=== PATIENT | female | born 1935 | race Caucasian/White ===

== ENCOUNTER 2017-06-14 10:27 | Outpatient (CLI) | payer MEDICARE ==
--- NOTE | 2017-06-14 12:21 | ULT ---
LEFT DIAGNOSTIC MAMMOGRAM LEFT BREAST SONOGRAM: Date: 06/14/17 HISTORY: Left breast masses. Six month follow-up. COMPARISON: 12/09/16. FINDINGS: Scattered fibroglandular densities are again demonstrated. At the inferior medial aspect of the left breast, two partially obscured irregular shaped isodense masses are again demonstrated. They are no w 1.0 and 0.9 cm greatest diameter where they were previously 0.7 cm greatest diameter each. Margins are now somewhat irregular. No other new dominant mass or suspicious calcifications are apparent. Sonographic evaluation of the medial aspect of the left breast again shows two lobular hypoechoic ma sses. The largest is now 0.7 cm width x 0.6 cm depth and shows some posterior acoustic shadowing. Th e smaller is now 0.6 cm diameter and shows subtle posterior shadowing. IMPRESSION: 1. Slight interval enlargement of the two hypoechoic masses at the medial aspect of the left breast , as detailed above. The enlargement and appearance are worrisome for neoplasm, not completely cysti c on today's study. 2. BIRADS 4: Suspicious Abnormality - Biopsy Should Be Considered. Tissue sampling of each mass is suggested. Sonographic needle biopsy will be scheduled with the assistance of Sanjuana Mcintosh from [facility]. Findings called to Gwen at the office of Dr. West at 1150 hours. CODE CR. POS: [facility]
== END 2017-06-14 10:28 | disposition home or self-care (01) ==
LOC: MAMMO 10:27
PROVIDERS: ATTEND Obstetrics & Gynecology
DX: N63 Unspecified lump in breast (principal)
CPT/HCPCS: 76642; G0206

== ENCOUNTER → 2017-06-24 | Day surgery (SDC) | payer MEDICARE ==
--- NOTE | 2017-06-24 16:02 | ULT ---
ULTRASOUND GUIDED LEFT BREAST BIOPSY: CLINICAL HISTORY: Left breast mass. PROCEDURE: Informed consent was obtained. The patient's left breast mass labeled 7-8 cm from nipple left breas t 9 o'clock location labeled as lesion 1 was localized sonographically. The left breast was prepped and draped in standard sterile fashion. Topical anesthesia with buffere d 1% Lidocaine was performed. A small skin incision was made. Through the incision site, a 14-gaug e needle was advanced to the leading edge of the mass and 4 subsequent core specimens were acquired with imaging stored for documentation. These were placed into a sealed formalin container which was then sent to pathology for further analysis. A biopsy marking clip was advanced into and deployed within the biopsied mass of interest. No procedural complications. The patient was transferred to mammography to undergo clip placement mammographic views subsequent t o the procedure. IMPRESSION: Left breast lesion 1, 9 o'clock location, 7-8 cm from nipple: Technically successful ultrasound-guided biopsy of lesion 1 of left breast. Pathology results are p ending. POS: [facility]
--- NOTE | 2017-06-24 16:07 | ULT ---
ULTRASOUND GUIDED LEFT BREAST BIOPSY: Left breast lesion 2, 4-5 cm from nipple at 9 o'clock location of left breast. PROCEDURE: Ultrasound-guided left breast biopsy, 2nd of 2 consecutive biopsies within the left breast. CLINICAL HISTORY: Left breast mass. PROCEDURE IN DETAIL: Informed consent was obtained. The patient's left breast was prepped and draped in standard sterile fashion and the 2nd of 2 biopsied lesions, which was located within the 9 o'clock location of left breast 4-5 cm from the nipple was localized sonographically. Topical anesthesia was achieved with 1% buffered Lidocaine. A small skin incision was made through which a 14 gauge biopsy needle was advanced to the leading edge of the lesion of interest. Four sub sequent core specimens under real-time sonography were performed with specimens placed into sealed f ormalin container which was then sent to pathology for further analysis. Imaging was stored for doc umentation. The needle was removed. A biopsy marking clip was advanced into and deployed within th e biopsied left breast mass. Imaging was stored for confirmation. The patient tolerated the procedure well without evidence of complication. The patient was transfer red to mammography to undergo clip placement views of left breast. IMPRESSION: Left breast lesion 2. Left breast location 9 o'clock, 4-5 cm from nipple. Technically successful ultrasound-guided left breast biopsy and marking clip placement. Pathology results are pending. POS: [facility]
--- NOTE | 2017-06-24 16:41 | MMO ---
DIAGNOSTIC LEFT MAMMOGRAM: CLINICAL HISTORY: Postprocedural left mammogram status post ultrasound-guided biopsy of 2 separate left breast masses. FINDINGS: There are 2 biopsy marking clips which do localize to the previously documented masses of the left b reast, corresponding to the ultrasound-guided preceding left breast biopsies. In addition, there is a 3rd, smaller lesion anteriorly within the left breast located slightly medial and anterior to the additional 2 lesions. This lesion was not biopsied. IMPRESSION: 1. Deployment of 2 separate biopsy marking clips status post ultrasound-guided breast biopsy of 2 s eparate left breast lesions. 2. There is a 3rd, smaller left breast mass which was not biopsied. Given multifocality of masses in the left breast, the patient would benefit from contrast-enhanced breast MRI. POS: [facility]
== END ==
LOC: ULT 12:06
PROVIDERS: ATTEND Obstetrics & Gynecology
DX: C50.812 Malignant neoplasm of overlapping sites of left female breast (principal)
CPT/HCPCS: 19083; 19084; 88305; 88342; 88361; G0206

== ENCOUNTER 2017-07-25 08:02 | Outpatient (CLI) | payer MEDICARE ==
[2017-07-25 09:40] LABS: #Basophils 0.1 thou/uL (0.0-0.2); #Eosinphils 0.2 thou/uL (0.0-0.7); #Lymphocytes 1.8 thou/uL (1.20-3.40); #Monocytes 0.9 thou/uL (0.11-0.59); #Neutrophils 8.2 thou/uL (1.40-6.50); %Basophils 0.5 % (0.0-1.0); %Eosinophils 1.4 % (0.0-10.0); %Lymphocytes 15.8 % (21.0-51.0); %Monocytes 8.2 % (0.0-10.0); Hematocrit 49.4 % (36.0-47.0); Mean Platelet Volume 7.3 fL (7.4-10.4); White Blood Cell (WBC) Count 11.1 thou/uL (4.8-10.8)
[2017-07-25 10:06] LABS: Anion Gap 14 mmol/L (10-20); BUN (Urea Nitrogen) 24 mg/dL (9.8-20.1); Calc. Creatinine Clearance 0 mL/min (70-130); Calcium 9.8 mg/dL (7.8-10.44); Carbon Dioxide 24 mmol/L (23-31); Chloride 108 mmol/L (98-107); Estimated GFR-MDRD 51
--- NOTE | 2017-07-25 15:09 | EKG ---
Test Reason : Blood Pressure : / mmHG Vent. Rate : 074 BPM Atrial Rate : 074 BPM P-R Int : 138 ms QRS Dur : 076 ms QT Int : 372 ms P-R-T Axes : 037 008 -03 degrees QTc Int : 412 ms Normal sinus rhythm Abnormal ECG Confirmed by SHAHRZAD SANDOVAL ([id number]) on 07/25/2017 3:09:01 PM Referred By: CHIRSTINA Confirmed By:SHAHRZAD SANDOVAL
== END 2017-07-25 08:03 | disposition home or self-care (01) ==
LOC: LABBT 08:02
PROVIDERS: ATTEND Surgery
DX: Z01.818 Encounter for other preprocedural examination (principal); C50.919 Malignant neoplasm of unspecified site of unspecified female breast
CPT/HCPCS: 80048; 85025; 93005; 93010

== ENCOUNTER 2017-07-28 07:10 | Day surgery (SDC) | payer MEDICARE ==
[2017-07-25 08:50] VITALS: BMI 24.7
--- NOTE | 2017-07-28 09:25 | NM ---
LYMPHOSCINTIGRAPHY 07/28/17 PROVIDED CLINICAL HISTORY: Left sided breast cancer. FINDINGS: Informed consent was obtained from the patient. 0.4 millicuries of technetium 99m labeled filtered s ulfur colloid were injected in the periareolar distribution in four equal aliquots about the left ar eola. Subsequent scintigraphy demonstrates radiotracer accumulation within the regions of radiotrace r administration as well as within the region of the left axilla. IMPRESSION: As above. POS: [facility]
[2017-07-28] MEDS ORDERED: Isosulfan Blue 50 MG/5 ML VIAL ONE (10:33)
[2017-07-28] MEDS ORDERED: Fentanyl 100 MCG/2 ML VIAL ONE ×4 (10:56→15:37)
[2017-07-28] MEDS ORDERED: Ondansetron HCl/PF 4 MG/2 ML Vial ONE (11:04)
[2017-07-28] MEDS ORDERED: ePHEDrine/0.9% NaCl/PF SYRINGE 50 mg/10 ml ONE (11:04)
[2017-07-28] MEDS ORDERED: Succinylcholine Chloride 20 MG/ML 10 ml SYRINGE FS ONE (11:04)
[2017-07-28] MEDS ORDERED: Propofol 200 MG/20 ML VIAL ONE (11:04)
[2017-07-28] MEDS ORDERED: Dexamethasone 20 MG/5 ML VIAL ONE (11:04)
[2017-07-28] MEDS ORDERED: Bupivacaine PF 0.5% 30 ML VIAL ONE (11:26)
[2017-07-28] MEDS ORDERED: Promethazine HCl 25 MG/ML VIAL SLOW IVP PRN (13:32)
[2017-07-28] MEDS ORDERED: Promethazine HCl 25 MG/ML VIAL IM PRN (13:32)
[2017-07-28] MEDS ORDERED: Ondansetron HCl/PF 4 MG/2 ML Vial IVP PRN (13:32)
[2017-07-28] MEDS ORDERED: HYDROcodone/Acetaminophen 7.5/325 mg Tablet PO PRN (13:41)
[2017-07-28] MEDS ORDERED: Ondansetron HCl/PF 4 MG/2 ML Vial SLOW IVP PRN (13:45)
[2017-07-28] MEDS ORDERED: Morphine Sulfate 2 MG/ML SYRINGE SLOW IVP PRN ×2 (13:45→13:46)
[2017-07-28] MEDS ORDERED: traMADol HCl 50 MG TAB PO PRN ×2 (13:47→13:48)
[2017-07-28] MEDS ORDERED: HYDROmorphone 2 MG/ML VIAL SLOW IVP PRN (15:11)
[2017-07-28] MEDS ORDERED: Non-Formulary Medication 1 EACH PO PRN (15:11)
[2017-07-28] MEDS: HYDROcodone/Acetaminophen 7.5/325 mg Tablet PO PRN ×2 (16:53→21:59)
[2017-07-28] MEDS: Sodium Chloride 0.9% 1,000 ML IV SCH (16:55)
--- NOTE | 2017-07-28 17:09 | PDOC.OP ---
Operative Note - Operative Note Operative Note: PROCEDURE: breast needle localized lumpectomy and sentinel lymph node biopsy DATE OF PROCEDURE: SURGEON: Jones Michelle M.D. PREOPERATIVE DIAGNOSES: Multifocal left breast cancer POSTOPERATIVE DIAGNOSIS: Multifocal left breast cancer HISTORY: Patient is diagnosed with breast cancer in 2 separate areas of the left breast. She has decided to undergo mastectomy due to the multifocal nature of her disease. She has declined reconstruction.. [place] lymph node biopsy was recommended for staging. PROCEDURE IN DETAIL: The patient underwent lymphoscintigraphy. She was then taken to the operating room and placed in supine position and anesthesia was administered. Lymphazurin was injected behind the areola and the breast was massaged for several minutes. She was then prepped and draped in the standard sterile fashion and local anesthesia infused to the skin and subcutaneous tissues of the axilla. An incision was made over the lower edge of the hair- bearing skin of the axilla and dissection carried down to the area of highest activity. Some blue lymphatics were seen feeding a small lymph node in this area which was morphologically normal. The lymphatics were clipped and the lymph node resected. A target count of 28 was obtained and the specimen was sent as sentinel lymph node #1. An additional area of increased activity was identified and another lymph node identified. This was blue and had a target count of 56 and was sent as sentinel lymph node #2. An additional area of increased activity was identified and another lymph node identified. This was not blue and had a target count of 24 and was sent as sentinel lymph node #23. The axillary wound was irrigated and examined for hemostasis which was excellent. No additional areas of increased activity were identified. Additional local anesthesia was infused circumferentially for postoperative pain management and the subcutaneous tissues were closed with 3-0 Monocryl suture and the skin closed with 4-0 subcuticular Monocryl suture. Attention was then turned to the mastectomy. An elliptical incision was made including the nipple areolar complex and flaps raised inferiorly to the level of the rectus sheath, medially to the sternal edge, and superiorly to the clavicle. The breast tissue was then dissected free of the underlying pectoralis muscle and marked for orientation with a long lateral and short superior suture. Hemostasis was obtained using Bovie electrocautery. A SAL drain was placed under the chest wall flaps and the subcutaneous tissues reapproximated with interrupted 2-0 Vicryl sutures. A skin incision was closed with skin [place] and Xeroform and gauze dressings were placed. The SAL was secured with a drain stitch and a gauze and Tegaderm dressing placed at that location as well. A compression dressing was placed using a circumferential Natalio wrap and the patient was extubated and taken to the recovery room in good condition. Estimated blood loss was minimal. There were no complications. Specimen is left breast and sentinel lymph nodes 3.
[2017-07-29] MEDS: Sodium Chloride 0.9% 1,000 ML IV SCH (01:00)
[2017-07-29 08:26] VITALS: BP 134/76
[2017-07-29 12:24] VITALS: TEMP 98.2
[2017-07-29] MEDS: HYDROcodone/Acetaminophen 7.5/325 mg Tablet PO PRN (12:37)
== END 2017-07-29 13:23 | disposition home or self-care (01) ==
LOC: SDC 07:10 → UNDOADMOB 14:53 → SURG B 14:53 → SDC 07-29 13:23 → UNDODISOB 07-29 13:23
PROVIDERS: ATTEND Surgery
PROC: 0HBU0ZX Excision of Left Breast, Open Approach, Diagnostic (ICD-10-PCS; principal; 2017-07-28)
PROC: 07B60ZX Excision of Left Axillary Lymphatic, Open Approach, Diagnostic (ICD-10-PCS; 2017-07-28)
DX: D05.12 Intraductal carcinoma in situ of left breast (principal); I10 Essential (primary) hypertension; E78.00 Pure hypercholesterolemia, unspecified; Z17.0 Estrogen receptor positive status [ER+]; Z79.899 Other long term (current) drug therapy; Z98.890 Other specified postprocedural states; Z87.891 Personal history of nicotine dependence; Z80.0 Family history of malignant neoplasm of digestive organs
CPT/HCPCS: 19301; 38500; 38900; 78195; 96374; 97110; 97139; A9541; G8987; G8988; G8989; Q9968; 88307; 88309; 88333; 88342; J1100; J2405; J2704; J3010; S0020

== ENCOUNTER 2017-09-12 15:02 | Outpatient (CLI) | payer MEDICARE | END 2017-09-12 15:03 | disposition home or self-care (01) | LOC: BICMAMMO 15:02 | PROVIDERS: ATTEND Internal Medicine Hematology & Oncology | DX: Z13.820 Encounter for screening for osteoporosis (principal); M85.88 Other specified disorders of bone density and structure, other site; Z78.0 Asymptomatic menopausal state | CPT/HCPCS: 77080 ==

== ENCOUNTER 2018-02-06 14:47 | Outpatient (CLI) | payer MEDICARE | END 2018-02-06 14:48 | disposition home or self-care (01) | LOC: BICMAMMO 14:47 | PROVIDERS: ATTEND Internal Medicine Hematology & Oncology | DX: C50.212 Malignant neoplasm of upper-inner quadrant of left female breast (principal); N63.13 Unspecified lump in the right breast, lower outer quadrant | CPT/HCPCS: 76642; 77065; G0279 ==

== ENCOUNTER → 2018-02-15 | Day surgery (SDC) | payer MEDICARE | LOC: BICULT 11:45 | PROVIDERS: ATTEND Internal Medicine Hematology & Oncology | PROC: 0HBT3ZX Excision of Right Breast, Percutaneous Approach, Diagnostic (ICD-10-PCS; principal; 2018-02-15) | DX: N60.31 Fibrosclerosis of right breast (principal); Z79.899 Other long term (current) drug therapy | CPT/HCPCS: 19083; 88305; 88341; 88342 ==

== ENCOUNTER 2019-02-14 10:01 | Outpatient (CLI) | payer MEDICARE ==
--- NOTE | 2019-02-14 10:46 | MMO ---
Right Breast MAMMO Unilat Diag DDI RT+RUDDY. CLINICAL HISTORY: Patient is 83 years old and is seen for diagnostic exam. The patient has no family history of breast cancer. The patient has a history of right Ultrasound Guided Core Biopsy in 2018 - benign, left Mastectomy in July, - malignant and left Ultrasound Guided Core Biopsy in 2017 - malignant. VIEWS: The views performed were: right craniocaudal with tomosynthesis; right mediolateral oblique with tomosynthesis; and right mediolateral. FILMS COMPARED: The present examination has been compared to prior imaging studies performed at [facility] on 02/06/2018, at [facility] on 12/03/2015, 12/09/2016 and 06/14/2017, and at [facility] on 06/24/2017. MAMMOGRAM FINDINGS: There are scattered fibroglandular densities. Finding 1: There is a stable nodule with associated biopsy clip seen in the right breast. Finding 2: There are vascular calcifications seen in the right breast. There are no suspicious masses, suspicious calcifications, or new areas of architectural distortion. IMPRESSION: THERE IS NO MAMMOGRAPHIC EVIDENCE OF MALIGNANCY. A ROUTINE FOLLOW-UP MAMMOGRAM IN 1 YEAR IS RECOMMENDED. THE RESULTS OF THIS EXAM WERE SENT TO THE PATIENT. ACR BI-RADS Category 2 - Benign finding MAMMOGRAPHY NOTE: 1. A negative mammogram report should not delay a biopsy if a dominant of clinically suspicious mass is present. 2. Approximately 10% to 15% of breast cancers are not detected by mammography. 3. Adenosis and dense breasts may obscure an underlying neoplasm.
--- NOTE | 2019-02-14 11:26 | BD ---
DEXA BONE DENSITY STUDY: HISTORY: Postmenopausal. FINDINGS: Lumbar Spine: BMD (g/cm2) L1 0.935 T-Score: -0.5 L2 1.009 T-Score: -0.2 L3 1.067 T-Score: -0.2 L4 0.983 T-Score: -0.7 L1-L4 1.001 T-Score: -0.4 Femoral Neck: 0.682 T-Score: -1.5 Total Femur: 0.797 T-Score: -1.2 Impression: 1. Osteopenia of left femoral neck. Normal bone mineral density of the lumbar spine. 2. Ten-year fracture risk for a major osteoporotic fracture is 12% and of a hip fracture 3.5%. Thes e fracture probabilities are calculated for an untreated patient. POS: [facility]
== END 2019-02-14 10:02 | disposition home or self-care (01) ==
LOC: BICMAMMO 10:01
PROVIDERS: ATTEND Internal Medicine Hematology & Oncology
DX: C50.919 Malignant neoplasm of unspecified site of unspecified female breast (principal); M85.852 Other specified disorders of bone density and structure, left thigh
CPT/HCPCS: 77065; 77080; G0279

== ENCOUNTER 2021-03-23 08:40 | Outpatient (CLI) | payer MEDICARE | END 2021-03-23 08:41 | disposition home or self-care (01) | LOC: BICMAMMO 08:40 | PROVIDERS: ATTEND Internal Medicine Hematology & Oncology | DX: Z13.820 Encounter for screening for osteoporosis (principal); C50.212 Malignant neoplasm of upper-inner quadrant of left female breast; N95.8 Other specified menopausal and perimenopausal disorders; M85.89 Other specified disorders of bone density and structure, multiple sites | CPT/HCPCS: 77066; 77080; G0279 ==

== ENCOUNTER 2022-03-25 12:37 | Outpatient (CLI) | payer MEDICARE | END 2022-03-25 12:38 | disposition home or self-care (01) | LOC: BICMAMMO 12:37 | PROVIDERS: ATTEND Internal Medicine Hematology & Oncology | DX: Z13.820 Encounter for screening for osteoporosis (principal); Z08 Encounter for follow-up examination after completed treatment for malignant neoplasm; Z85.3 Personal history of malignant neoplasm of breast; T38.6X5A Adverse effect of antigonadotrophins, antiestrogens, antiandrogens, not elsewhere classified, initial encounter; M85.851 Other specified disorders of bone density and structure, right thigh; M85.852 Other specified disorders of bone density and structure, left thigh | CPT/HCPCS: 77065; 77080; G0279; 77066 ==

== ENCOUNTER 2023-04-11 12:21 | Inpatient (IN) | payer MEDICARE ==
[2023-04-11 14:33] LABS: #Basophils 0.1 thou/uL (0.0-0.2); #Eosinphils 0.1 thou/uL (0.0-0.7); #Neutrophils 12.9 thou/uL (1.40-6.50); %Basophils 0.3 % (0.0-1.0); %Eosinophils 0.6 % (0.0-10.0); %Lymphocytes 11.7 % (21.0-51.0); %Monocytes 6.3 % (0.0-10.0); %Neutrophils 80.5 % (42.0-75.0); Hemoglobin 16.5 g/dL (12.0-16.0); Mean Corpuscular HGB CONC 33.5 g/dL (32.0-36.0); Mean Corpuscular Hemoglobin 31.4 pg (27.0-31.0); Mean Corpuscular Volume 93.9 fl (78.0-98.0); Mean Platelet Volume 9.4 fL (7.4-10.4); Platelet Count 264 10x3/uL (130-400); RBC Distribution Width 12.7 % (11.5-14.5); Red Blood Cell (RBC) Count 5.25 mill/uL (4.20-5.40); White Blood Cell (WBC) Count 16.1 10x3/uL (4.8-10.8)
[2023-04-11 14:55] LABS: ALT (SGPT) 32 U/L (8-55); AST (SGOT) 35 U/L (5-34); Albumin 4.3 g/dL (3.4-4.8); Alkaline Phosphatase 55 U/L (40-110); Anion Gap 15 mmol/L (10-20); BUN (Urea Nitrogen) 14 mg/dL (9.8-20.1); Bilirubin, Total 0.7 mg/dL (0.2-1.2); Calc. Creatinine Clearance 0 mL/min (70-130); Calcium 9.9 mg/dL (7.8-10.44); Carbon Dioxide 25 mmol/L (23-31); Chloride 106 mmol/L (98-107); Estimated GFR 53; Globulin 3.9 g/dL (2.4-3.5); Glucose 114 mg/dL (83-110); Potassium 4.2 mmol/L (3.5-5.1); Protein, Total 8.2 g/dL (5.8-8.1); Sodium 142 mmol/L (136-145)
[2023-04-11] MEDS ORDERED: Dextrose 5% in Water 1,000 ML IV PRN (15:37)
[2023-04-11] MEDS ORDERED: Ondansetron ODT 4 MG TAB PO PRN (15:37)
[2023-04-11] MEDS ORDERED: Glucagon 1 MG/ML KIT IM PRN (15:37)
[2023-04-11] MEDS ORDERED: Dextrose 50% Abboject 50 ML SYRINGE SLOW IVP PRN (15:37)
[2023-04-11] MEDS ORDERED: Ondansetron PF 4 MG/2 ML Vial IVP PRN (15:37)
[2023-04-11] MEDS ORDERED: TETANUS, DIPHTHERIA TOX,ADULT (TDVAX) 0.5 ML VIAL IM ONE (15:37)
[2023-04-11] MEDS ORDERED: Cyclobenzaprine 10 MG TAB PO PRN (15:42)
[2023-04-11] MEDS ORDERED: hydrALAZINE 20 MG/ML VIAL SLOW IVP PRN (15:43)
[2023-04-11] MEDS ORDERED: Ibuprofen 200 MG TAB PO PRN (15:43)
[2023-04-11] MEDS ORDERED: Boostrix 0.5 ML (Tdap) VIAL (>/=7 yrs of age) ONE (16:41)
[2023-04-11] MEDS ORDERED: Acetaminophen 325 MG TAB ONE (16:41)
[2023-04-11] MEDS: Acetaminophen 325 MG TAB PO SCH ×2 (16:50→20:59)
[2023-04-11] MEDS: Famotidine 20 MG TAB PO SCH (20:59)
[2023-04-12] MEDS: Sodium Chloride 0.9% 1,000 ML IV SCH ×3 (00:41→20:57)
[2023-04-12] MEDS: Acetaminophen 325 MG TAB PO SCH ×3 (04:31→21:02)
[2023-04-12 05:35] LABS: #Basophils 0.1 thou/uL (0.0-0.2); #Eosinphils 0.4 thou/uL (0.0-0.7); #Monocytes 0.9 thou/uL (0.11-0.59); #Neutrophils 9.3 thou/uL (1.40-6.50); %Basophils 0.5 % (0.0-1.0); %Eosinophils 2.9 % (0.0-10.0); %Lymphocytes 12.2 % (21.0-51.0); %Monocytes 7.7 % (0.0-10.0); %Neutrophils 76.3 % (42.0-75.0); Hemoglobin 16.2 g/dL (12.0-16.0); Mean Corpuscular HGB CONC 33.8 g/dL (32.0-36.0); Mean Corpuscular Hemoglobin 31.4 pg (27.0-31.0); Mean Corpuscular Volume 92.8 fl (78.0-98.0); Platelet Count 236 10x3/uL (130-400); RBC Distribution Width 12.5 % (11.5-14.5); Red Blood Cell (RBC) Count 5.16 mill/uL (4.20-5.40); White Blood Cell (WBC) Count 12.2 10x3/uL (4.8-10.8)
[2023-04-12 05:57] LABS: Anion Gap 15 mmol/L (10-20); BUN (Urea Nitrogen) 14 mg/dL (9.8-20.1); Calc. Creatinine Clearance 32 mL/min (70-130); Calcium 9.3 mg/dL (7.8-10.44); Carbon Dioxide 23 mmol/L (23-31); Chloride 107 mmol/L (98-107); Estimated GFR 48; Glucose 113 mg/dL (83-110); Potassium 3.9 mmol/L (3.5-5.1); Sodium 141 mmol/L (136-145)
[2023-04-12] MEDS ORDERED: CEFAZOLIN 2 GM in Sodium Chloride 0.9% 100 ML IVPB SCH (07:45)
[2023-04-12] MEDS ORDERED: fentaNYL 50 mcg/mL 1 mL Vial ONE ×2 (08:13→10:47)
[2023-04-12] MEDS ORDERED: Sodium Chloride 0.9% 100 ML ONE (08:45)
[2023-04-12] MEDS ORDERED: CEFAZOLIN 2 GM VIAL ONE (08:45)
[2023-04-12] MEDS ORDERED: NEOSTIGMINE 3 MG/3 ML SYR 3 MG/3 ML SYRINGE ONE (09:09)
[2023-04-12] MEDS ORDERED: Glycopyrrolate 0.2 MG/ML 5 ML SYRINGE ONE (09:09)
[2023-04-12] MEDS ORDERED: PROPOFOL 200 MG/20 ML VIAL ONE (09:09)
[2023-04-12] MEDS ORDERED: Ondansetron PF 4 MG/2 ML Vial ONE (09:09)
[2023-04-12] MEDS ORDERED: Dexamethasone 20 MG/5 ML VIAL ONE (09:09)
[2023-04-12] MEDS ORDERED: Lidocaine 1% PF 5 ML VIAL ONE (09:09)
[2023-04-12] MEDS ORDERED: Rocuronium Bromide 10 MG/ML (10ML VIAL) ONE (09:09)
[2023-04-12] MEDS: CEFAZOLIN 2 GM in Sodium Chloride 0.9% 100 ML IVPB SCH ×2 (14:29→21:01)
[2023-04-12 15:00] VITALS: BMI 22.1
[2023-04-12] MEDS ORDERED: Non-Formulary Item 1 EACH (Lovastatin [Lovastatin] 40 MG Tablet) PO SCH (17:00)
[2023-04-12] MEDS: Atorvastatin Calcium 10 MG TAB PO SCH (17:33)
[2023-04-12] MEDS: Famotidine 20 MG TAB PO SCH ×2 (18:14→20:58)
[2023-04-12] MEDS: Ascorbic Acid 500 mg Chewable Tablet PO SCH (20:57)
[2023-04-12] MEDS ORDERED: Non-Formulary Item 1 EACH (Ascorbate Calcium [Vitamin C] 500 MG Tablet) PO SCH (21:00)
[2023-04-13] MEDS: Acetaminophen 325 MG TAB PO SCH ×4 (05:08→22:10)
[2023-04-13 06:10] LABS: #Monocytes 0.9 thou/uL (0.11-0.59); #Neutrophils 14.3 thou/uL (1.40-6.50); %Basophils 0.1 % (0.0-1.0); %Eosinophils 0.1 % (0.0-10.0); %Lymphocytes 6.6 % (21.0-51.0); %Monocytes 5.6 % (0.0-10.0); %Neutrophils 86.9 % (42.0-75.0); Hemoglobin 14.2 g/dL (12.0-16.0); Mean Corpuscular Hemoglobin 31.9 pg (27.0-31.0); Mean Corpuscular Volume 93.9 fl (78.0-98.0); Platelet Count 216 10x3/uL (130-400); RBC Distribution Width 12.6 % (11.5-14.5); Red Blood Cell (RBC) Count 4.45 mill/uL (4.20-5.40); White Blood Cell (WBC) Count 16.5 10x3/uL (4.8-10.8)
[2023-04-13 06:29] LABS: Anion Gap 8 mmol/L (10-20); BUN (Urea Nitrogen) 15 mg/dL (9.8-20.1); Calc. Creatinine Clearance 33 mL/min (70-130); Calcium 8.2 mg/dL (7.8-10.44); Carbon Dioxide 22 mmol/L (23-31); Chloride 116 mmol/L (98-107); Estimated GFR 52; Glucose 164 mg/dL (83-110); Potassium 4.1 mmol/L (3.5-5.1); Sodium 142 mmol/L (136-145)
[2023-04-13] MEDS: Acetaminophen/Codeine 30-300mg Tablet PO PRN (09:05)
[2023-04-13] MEDS: Aspirin Chewable 81 MG TAB PO SCH ×2 (09:06→20:55)
[2023-04-13] MEDS: Lisinopril 20 MG TAB PO SCH (09:06)
[2023-04-13] MEDS: Atorvastatin Calcium 10 MG TAB PO SCH (17:42)
[2023-04-13] MEDS: Sodium Chloride 0.9% 1,000 ML IV SCH (20:13)
[2023-04-13] MEDS: Ascorbic Acid 500 mg Chewable Tablet PO SCH (20:54)
[2023-04-13] MEDS: Famotidine 20 MG TAB PO SCH (20:55)
[2023-04-14] MEDS: Acetaminophen 325 MG TAB PO SCH ×4 (06:38→21:17)
[2023-04-14] MEDS: Aspirin Chewable 81 MG TAB PO SCH ×2 (07:48→20:07)
[2023-04-14] MEDS: Lisinopril 20 MG TAB PO SCH (07:48)
[2023-04-14] MEDS ORDERED: NIFEdipine XL 30 MG TAB PO SCH (09:00)
[2023-04-14 16:57] LABS: #Eosinphils 0.3 thou/uL (0.0-0.7); #Monocytes 1.4 thou/uL (0.11-0.59); #Neutrophils 10.3 thou/uL (1.40-6.50); %Basophils 0.3 % (0.0-1.0); %Eosinophils 2.5 % (0.0-10.0); %Lymphocytes 10.3 % (21.0-51.0); %Monocytes 10.4 % (0.0-10.0); %Neutrophils 75.9 % (42.0-75.0); Hemoglobin 15.2 g/dL (12.0-16.0); Mean Corpuscular HGB CONC 34.2 g/dL (32.0-36.0); Mean Corpuscular Hemoglobin 31.3 pg (27.0-31.0); Mean Corpuscular Volume 91.4 fl (78.0-98.0); Mean Platelet Volume 9.9 fL (7.4-10.4); Platelet Count 264 10x3/uL (130-400); Red Blood Cell (RBC) Count 4.86 mill/uL (4.20-5.40); White Blood Cell (WBC) Count 13.6 10x3/uL (4.8-10.8)
[2023-04-14] MEDS: Atorvastatin Calcium 10 MG TAB PO SCH (17:38)
[2023-04-14] MEDS: Ascorbic Acid 500 mg Chewable Tablet PO SCH (20:07)
[2023-04-14] MEDS: Famotidine 20 MG TAB PO SCH (20:07)
[2023-04-14] MEDS: Senokot S 8.6-50 MG TAB PO SCH (20:07)
[2023-04-15] MEDS: Acetaminophen 325 MG TAB PO SCH ×4 (04:51→20:33)
[2023-04-15] MEDS: Lisinopril 20 MG TAB PO SCH (09:05)
[2023-04-15] MEDS: Polyethylene Glycol 3350 17 GM Packet PO SCH (09:06)
[2023-04-15] MEDS: Senokot S 8.6-50 MG TAB PO SCH ×2 (09:06→20:33)
[2023-04-15] MEDS: Aspirin Chewable 81 MG TAB PO SCH ×2 (09:06→20:34)
[2023-04-15] MEDS: Atorvastatin Calcium 10 MG TAB PO SCH (17:42)
[2023-04-15] MEDS: Famotidine 20 MG TAB PO SCH (20:34)
[2023-04-15] MEDS: Ascorbic Acid 500 mg Chewable Tablet PO SCH (20:34)
[2023-04-16] MEDS: Acetaminophen 325 MG TAB PO SCH ×4 (06:14→20:24)
[2023-04-16] MEDS: Polyethylene Glycol 3350 17 GM Packet PO SCH (08:24)
[2023-04-16] MEDS: Aspirin Chewable 81 MG TAB PO SCH ×2 (08:28→20:24)
[2023-04-16] MEDS: Senokot S 8.6-50 MG TAB PO SCH ×2 (08:28→20:23)
[2023-04-16] MEDS: Lisinopril 20 MG TAB PO SCH (08:28)
[2023-04-16] MEDS: Atorvastatin Calcium 10 MG TAB PO SCH (16:54)
[2023-04-16] MEDS: Famotidine 20 MG TAB PO SCH (20:23)
[2023-04-16] MEDS: Ascorbic Acid 500 mg Chewable Tablet PO SCH (20:24)
[2023-04-17] MEDS: Acetaminophen 325 MG TAB PO SCH ×4 (03:44→20:37)
[2023-04-17] MEDS: Polyethylene Glycol 3350 17 GM Packet PO SCH (08:25)
[2023-04-17] MEDS: Lisinopril 20 MG TAB PO SCH (08:26)
[2023-04-17] MEDS: Senokot S 8.6-50 MG TAB PO SCH ×2 (08:34→20:36)
[2023-04-17] MEDS: Aspirin Chewable 81 MG TAB PO SCH ×2 (08:34→20:37)
[2023-04-17] MEDS: Acetaminophen/Codeine 30-300mg Tablet PO PRN ×2 (08:34→20:36)
[2023-04-17] MEDS: Atorvastatin Calcium 10 MG TAB PO SCH (16:31)
[2023-04-17] MEDS: Famotidine 20 MG TAB PO SCH (20:36)
[2023-04-17] MEDS: Ascorbic Acid 500 mg Chewable Tablet PO SCH (20:36)
[2023-04-18] MEDS: Acetaminophen 325 MG TAB PO SCH ×4 (04:00→20:57)
[2023-04-18] MEDS: Senokot S 8.6-50 MG TAB PO SCH ×2 (08:58→20:55)
[2023-04-18] MEDS: Lisinopril 20 MG TAB PO SCH (09:01)
[2023-04-18] MEDS: Aspirin Chewable 81 MG TAB PO SCH ×2 (09:01→20:55)
[2023-04-18] MEDS: Polyethylene Glycol 3350 17 GM Packet PO SCH (09:02)
[2023-04-18] MEDS: Atorvastatin Calcium 10 MG TAB PO SCH (18:13)
[2023-04-18] MEDS: Famotidine 20 MG TAB PO SCH (20:55)
[2023-04-18] MEDS: Ascorbic Acid 500 mg Chewable Tablet PO SCH (20:55)
[2023-04-18] MEDS: Acetaminophen/Codeine 30-300mg Tablet PO PRN (20:55)
[2023-04-19] MEDS: Acetaminophen 325 MG TAB PO SCH ×3 (05:12→17:15)
[2023-04-19] MEDS: Senokot S 8.6-50 MG TAB PO SCH (10:45)
[2023-04-19] MEDS: Lisinopril 20 MG TAB PO SCH (10:45)
[2023-04-19] MEDS: Polyethylene Glycol 3350 17 GM Packet PO SCH (10:45)
[2023-04-19] MEDS: Aspirin Chewable 81 MG TAB PO SCH (10:47)
[2023-04-19 15:29] VITALS: BP 118/74; TEMP 97.7
[2023-04-19] MEDS: Atorvastatin Calcium 10 MG TAB PO SCH (17:15)
== END 2023-04-19 17:51 | disposition home or self-care (01) | DRG 482 ==
LOC: ERS 12:21 → ERHOLD 16:01 → SURG A 19:44
PROVIDERS: ADMIT Surgery; ATTEND Surgery
PROC: 0QS604Z Reposition Right Upper Femur with Internal Fixation Device, Open Approach (ICD-10-PCS; principal; 2023-04-12)
DX: S72.001A Fracture of unspecified part of neck of right femur, initial encounter for closed fracture (principal); E78.5 Hyperlipidemia, unspecified; I10 Essential (primary) hypertension; F03.90 Unspecified dementia, unspecified severity, without behavioral disturbance, psychotic disturbance, mood disturbance, and anxiety; E78.00 Pure hypercholesterolemia, unspecified; W19.XXXA Unspecified fall, initial encounter; Y92.009 Unspecified place in unspecified non-institutional (private) residence as the place of occurrence of the external cause; Z98.890 Other specified postprocedural states
CPT/HCPCS: 36415; 71045; 72170; 80048; 80053; 85025; 90714; 90715; 93005; 94760; C1713; G0390; J0360; J1100; J2405; J2704; J3010; J3490; J7050

== ENCOUNTER 2023-12-06 10:27 | Outpatient (CLI) | payer MEDICARE | END 2023-12-06 10:28 | disposition home or self-care (01) | LOC: BICMAMMO 10:27 | PROVIDERS: ATTEND Nurse Practitioner | DX: M85.852 Other specified disorders of bone density and structure, left thigh (principal) | CPT/HCPCS: 77080 ==